=== PATIENT | female | born 1985 | race Caucasian/White ===

== ENCOUNTER 2020-01-18 12:45 | Observation (INO) | payer BC ==
[~2020-01-18] VITALS: Ht 165.1 cm; Wt 67.3 kg
[2020-01-18 13:30] VITALS: BP 124/68; PULSE 78; TEMP 98.3
[2020-01-18 13:33] VITALS: BP 104/55; PULSE 92; TEMP 98.5
[2020-01-18] MEDS ORDERED: PRENATAL MVI (13:38)
[2020-01-18] MEDS ORDERED: OSCAL 500 TAB500 MG PO (13:38)
--- NOTE | 2020-01-18 14:23 | NUR ---
[address] HIGGINS OFFICE WITH PAIN IN RIGHT LOWER QUAD. RATES 5 OUT OF 10. ASSESSMENT COMPLETED. IV STARTED IN LEFT HAND NS STARTED AT 250CC/HR. FHT DOPPLER FOR 158 . BABY ACTIVE. PATIENT DENIES NEEDS AT THIS TIME. 1400 DR HIGGINS AT BEDSIDE TO TALK AND DISCUSS OPTIONS WITH PATIENT. WAITING FOR SURGICAL CONSULT.
[2020-01-18 16:46] VITALS: BP 120/64; PULSE 78; TEMP 98.1
--- NOTE | 2020-01-18 16:48 | NUR ---
1650 PATIENT TO RADIOLOGY FOR MRI PER DR GÓMEZ
--- NOTE | 2020-01-18 17:44 | NUR ---
1741 DR HERRERA HERE TO TALK WITH PATIENT AND DISCUSS OPTIONS.
--- NOTE | 2020-01-18 17:58 | NUR ---
1800 DR HIGGINS CALLED WITH ORDERS. PATIENT SITS UP IN BED EATING JELLO AND TALKING WITH AT THIS TIME.
--- NOTE | 2020-01-18 18:00 | NUR ---
1800 DR ROLES CALLED AND UPDATED. PATIENT SITS UP IN BED EATING JELLO AND TALKING WITH ON PHONE. DENIES NEEDS AT THIS TIME
[2020-01-18 20:00] VITALS: BP 97/44; PULSE 84; TEMP 98.1
[2020-01-19 02:00] VITALS: BP 91/42; PULSE 80; TEMP 98.1
--- NOTE | 2020-01-19 05:15 | NUR ---
0515 URINE LIGHT YELLOW AND STRAINED ALL SHIFT. IV CONTS TO INFUSE PER IV PUMP. STATES IS FEELING BETTER THIS AM.
[2020-01-19 06:23] LABS: HEMATOCRIT 31.5 % (37.0-47.0); HEMOGLOBIN 10.8 g/dl (12.5-16.0); MEAN CELL VOLUME 87 fl (80.0-100.0); MEAN CORPUSCULAR HEMOGLOBIN 30 pg (27.0-31.0); MEAN CORPUSCULAR HGB CONC 34 g/dl (33.0-37.0); MEAN PLATELET VOLUME 10.9 fl (7.4-10.4); PLATELET COUNT 189 K/mm3 (130-400); RED BLOOD COUNT 3.61 M/mm3 (4.10-5.30); REDCELL DISTRIBUTION WIDTH-CV 12.8 % (11.5-14.5)
[2020-01-19 06:24] LABS: ALBUMIN 2.9 gm/dL (3.5-5.0); BILIRUBIN,TOTAL 0.8 mg/dL (0.0-1.0); CALCIUM 8.2 mg/dL (8.4-10.2); CREATININE, serum 0.44 (0.52-1.25); POTASSIUM 4.2 mmol/L (3.4-5.0)
[2020-01-19 07:00] VITALS: BP 104/54; PULSE 87; TEMP 98.9
[2020-01-19] MEDS ORDERED: TYLENOL 325MG325 MG PO (10:15)
--- NOTE | 2020-01-19 11:00 | NUR ---
1100-Reviewed discharge instructions with patient. Patient verbalized understanding. Denies questions. 1108- to patient room while patient ambulating in hallway. RN contacted MD back. No new orders, appreciates update, aware of discharge order from Dr. Velasquez. Updated patient on MD's phone call update. 1112-Ambulatory off unit to spouse's car with this RN.
== END 2020-01-19 11:12 | disposition home or self-care (01) ==
LOC: OB 12:45
PROVIDERS: ADMIT Obstetrics & Gynecology
DX: O99.89 Other specified diseases and conditions complicating pregnancy, childbirth and the puerperium (principal); R10.31 Right lower quadrant pain; Z3A.19 19 weeks gestation of pregnancy
CPT/HCPCS: G0378; J7030

== ENCOUNTER 2020-04-19 15:22 | Outpatient (CLI) | payer BC ==
[2020-04-18 19:00] VITALS: BP 100/46; PULSE 110
[2020-04-19] VITALS (12 sets, daily range): BP systolic 98–117; BP diastolic 46–60; PULSE 90–116; TEMP 99.3
[~2020-04-19] VITALS: Ht 165.1 cm; Wt 75.9 kg
[~2020-04-19 15:22] MED LIST: OSCAL 500 TAB500 MG PO; PRENATAL MVI; TYLENOL 325MG325 MG PO
--- NOTE | 2020-04-19 16:13 | NUR ---
PT HERE FOR LABOR CHECK. STARTED HAVING SEVERE ABDOMINAL PAIN ON THE RIGHT SIDE ABOUT 8:30 THIS MORNING, SUBSIDED WHEN SHE WAS LYING DOWN AND THEN CAME BACK EVEN WORSE AROUND 1:[address] HIGGINS WHO SENT HER TO THE HOSPITAL FOR LABS, IV FLUIDS, AND MONITORING. PLAN OF CARE REVIEWED WITH PT AND . FHT'S FOUND IN THE 145-150 RANGE WITH MODERATE VARIABILITY AND ACCELS. SVE BY DR SHARMA: / WITH BLOODY SHOW. IV STARTED IN LEFT HAND AT 1550 WITH LR BOLUS INFUSING. BETAMETHASONE 12.5MG GIVEN IM AT 1552 IN RIGHT GLUTEUS. LABS DRAWN ALSO: CBC, CMP, AND BLOOD TYPING. ASSESSMENT COMPLETED. PT HAVING CONTRACTIONS EVERY 2-5 MINUTES AND PT IS HAVING TO BREATHE THROUGH CONTRACTIONS.
--- NOTE | 2020-04-19 16:30 | NUR ---
FHT'S WITH EXTENDED ACCELERATION TO THE 170-180'S OVER [address] HIGGINS REGARDING THIS AT 1623 AND SHE IS ON HER WAY TO SEE THE PT.
[2020-04-19 16:44] LABS: ALBUMIN 3.2 gm/dL (3.5-5.0); BILIRUBIN,TOTAL 0.5 mg/dL (0.0-1.0); CALCIUM 8.9 mg/dL (8.4-10.2); CREATININE, serum 0.63 (0.52-1.25); POTASSIUM 4.1 mmol/L (3.4-5.0); TOTAL PROTEIN 6.2 gm/dL (6.4-8.2)
--- NOTE | 2020-04-19 16:45 | NUR ---
ROLES HERE AT 1631. SVE 1-2//-2. ORDERS RECEIVED TO START MAG SULFATE AFTER AN ADDITIONAL 250ML BOLUS
[2020-04-19 16:51] LABS: HEMATOCRIT 38.7 % (37.0-47.0); HEMOGLOBIN 12.5 g/dl (12.5-16.0); MEAN CELL VOLUME 89 fl (80.0-100.0); MEAN CORPUSCULAR HEMOGLOBIN 29 pg (27.0-31.0); MEAN CORPUSCULAR HGB CONC 32 g/dl (33.0-37.0); MEAN PLATELET VOLUME 11.9 fl (7.4-10.4); PLATELET COUNT 153 K/mm3 (130-400); RED BLOOD COUNT 4.36 M/mm3 (4.10-5.30); REDCELL DISTRIBUTION WIDTH-CV 12.7 % (11.5-14.5)
--- NOTE | 2020-04-19 17:15 | NUR ---
MAG SULFATE 4GM BOLUS STARTED AT 1709. DISCUSSED PLAN OF CARE AND MAG SIDE EFFECTS WITH PT AND .
[2020-04-19 17:26] LABS: COLLECTION METHOD CLEAN CATCH
[2020-04-19 17:38] LABS: MUCOUS Present /lpf; PH 6 (5-8); SQUAMOUS EPITHELIAL 0-2 /hpf; URINE APPEARANCE Clear; URINE BACTERIA None Seen /hpf; URINE BILIRUBIN Negative (NEGATIVE); URINE BLOOD 2+ (NEGATIVE); URINE COLOR Yellow; URINE GLUCOSE Negative (NEGATIVE); URINE KETONE 1+ (NEGATIVE); URINE LEUKOCYTE ESTERASE Negative (NEGATIVE); URINE NITRATE Negative (NEGATIVE); URINE PROTEIN(semi-quant) Negative (NEGATIVE); URINE RBC 20-50 /hpf; URINE UROBILINOGEN Negative (NEGATIVE)
--- NOTE | 2020-04-19 17:45 | NUR ---
ROLES IN AT 1734-SVE UNCHANGED. MAG SULFATE 2GM/HR STARTED AT 1733. PT REPORTS CONTRACTIONS ARE MUCH LESS PAINFUL.
[2020-04-19 17:57] LABS: LYMPHOCYTE 9 % (20.0-51.0); NEUTROPHILS 77 % (42.0-75.2)
[2020-04-19 17:58] LABS: PLATELET ESTIMATE NORMAL (NORMAL)
--- NOTE | 2020-04-19 18:40 | NUR ---
Pt requesting pain medicine, deep breathing. SVE as noted.
--- NOTE | 2020-04-19 18:59 | NUR ---
Terbutaline 0.25 SQ to L upper arm, after explanation to pt and spouse.
--- NOTE | 2020-04-19 19:00 | NUR ---
Pt asks "is there some way you can move me that would be more comfortable?"To Brionna perez for comfort.
--- NOTE | 2020-04-19 19:45 | NUR ---
Mg Sulfate turned off. Mainline LR to 125/cc hr.
--- NOTE | 2020-04-19 20:10 | NUR ---
Dr Gallardo into room. views monitor,SVE as noted.
--- NOTE | 2020-04-19 20:30 | NUR ---
IV dc'd, mota catheter dc'd.
--- NOTE | 2020-04-19 20:35 | NUR ---
Discharge instructions reviewed with pt and spouse, questions invited and answered. Pt requests wheelchair
== END 2020-04-19 20:40 | disposition home or self-care (01) ==
LOC: LDRO 15:22 → LDR 15:25 → LDRO 20:40
PROVIDERS: Obstetrics & Gynecology
DX: O26.893 Other specified pregnancy related conditions, third trimester (principal); Z3A.32 32 weeks gestation of pregnancy
CPT/HCPCS: OP; J0702; J3105; J3475; J7120

== ENCOUNTER 2020-04-20 16:31 | Outpatient (CLI) | payer BC ==
[~2020-04-20] VITALS: Ht 165.1 cm; Wt 75.9 kg
--- NOTE | 2020-04-20 16:42 | NUR ---
1642-Patient to LR 3 for second dose of betamethasone. Reports pain through the night persists but improves with tylenol PRN and rest. Reports good movement and denies LOF, does indicate small light pink and brown spotting once. Assisted onto EFM, FHR reactive. Contractions tracing via toco every 5-10 min. Palpate mild. Patient denies nausea or any other concers. 1700-IM betamethasone given per VO from Dr. Gallardo in left gluteus. 172-Dr. Gallardo updated see MD notification. 174-Patient off EFM, discharge instructions reviewed. 1755-Patient requested wheelchair ride to car and was escorted with SUSANA Head and spouse off unit.
[2020-04-20 16:59] VITALS: BP 113/59; PULSE 90; TEMP 99.2
[2020-04-20 17:00] VITALS: BP 121/59; PULSE 94
[2020-04-20 17:30] VITALS: BP 105/57; PULSE 90
== END 2020-04-20 17:55 ==
LOC: LDRO 16:31
DX: O34.30 Maternal care for cervical incompetence, unspecified trimester (principal); Z3A.00 Weeks of gestation of pregnancy not specified
CPT/HCPCS: J0702

== ENCOUNTER → 2020-05-28 | Outpatient (CLI) | payer BC ==
[~2020-05-28] MED LIST changes: +ACTIGALL 300MG300 MG; +MOTRIN 600600 MG/TAB PO
== END ==
LOC: ZCOL.LAB
DX: Z20.828 Contact with and (suspected) exposure to other viral communicable diseases (principal)

== ENCOUNTER → 2020-06-03 | Outpatient (CLI) | payer BC ==
--- NOTE | 2020-06-03 15:55 | NUR ---
Pt, Lenora Craig, presents for an outpatient consult with three day old baby boy, Arya Craig and her spouse Timoteo. Lenora contacted this for an appointment with concerns about latch and in general. Arya was born on [birth year] by and weighed 8#1oz (3660 gms). Discharge weight on 06/02/20 was 7#7oz. Pt reports in the 24 hours since discharge Arya has had 4 or more voids and 4 stools that are described as meconium. Today Arya weighs 6#15oz (3146 gms) for a 14% wt loss. Pt states she generally has to wake him for feedings and some feedings are pretty sleepy. His skin tone is noted to be moderately jaundice. Pt advised on latching techniques that help her be more comfortable with the feeding, however after nursing bilaterally Arya had a gain of only 2 gms. Pt does not feel milk volume increasing yet and with palpation, this LC does not recognize any indicators of engorgement. Family is receptive to use of SNS. They are instructed and FOB able to place feeding tube. Arya drinks 24ml of formula and has a gain of another 2gms from the breast. Report of 's weight and moderate jaundice called to Dr. Mireles, orders received for repeat bilirubing. POC: 3 step feeding plan with breast/supplement/pumping. Provide about 1oz supplement per feeding. Family will plan to use SNS but aware they can use bottle feeding if SNS not effective. Pt has pump, will start use after and provide collected amounts as supplement as available. F/U: Dr. Mireles tomorrow, by telephone with this after that appt. [facility] lab test. Questions invited and answered.
== END ==
LOC: LAC
DX: Z39.1 Encounter for care and examination of lactating mother (principal); Z71.89 Other specified counseling

== ENCOUNTER → 2020-06-06 | Outpatient (CLI) | payer BC ==
--- NOTE | 2020-06-06 14:32 | NUR ---
Pt, Lenora Craig, presents for follow-up consult with six day old baby boy, Arya Craig and her spouse Timoteo Craig. They were seen three days ago because of latch concerns. Arya was born on 05/31/2019 and weighed 8#1.1oz (3660 gms). Three days ago he weighed 6#15.0 oz (3147 gms) which was 14% below weight. The 3-step feeding plan was implemented and the family started supplementing each feeding with formula until pt's milk volume increased that she could use EBM. Arya was seen by Dr. Mireles the following day and had gained 4oz. Today Arya weighs 7#6.8oz (3368 gms) and is now at 7% loss. Pt states her milk finally came in yesterday and in the last 48 hours he has had only 4oz supplement. LC coaches on latching again, pt states it feels a little better. Healing wounds noted bilaterally. After nursing Arya has a gain of 2.4oz (70gms) and appears content. LC reviews nipple care and latch stratagies, suggests contacting Dr. Velasquez for prescription of Farfan's Nipple Cream. POC: Breastfeed on demand, ensuring at least 8 feedings per 24 hours. If baby does not appear content she can elect to pump and provide milk from bottle. F/U: As scheduled with Dr. Mireles, with LC as needed. Questions invited and answered.
== END ==
LOC: LAC
DX: Z39.1 Encounter for care and examination of lactating mother (principal); Z71.89 Other specified counseling